=== PATIENT | male | born 1975 | race American Indian/Alaskan Native ===

== ENCOUNTER 2016-12-28 09:33 | Outpatient (CLI) | payer OTHER ==
[2016-12-28] MEDS ORDERED: PROVENTIL IH ONE (09:45)
== END 2016-12-28 09:34 | disposition home or self-care (01) ==
LOC: PF 09:33
PROVIDERS: ATTEND Internal Medicine
DX: I50.9 Heart failure, unspecified (principal); R06.89 Other abnormalities of breathing; M25.80 Other specified joint disorders, unspecified joint; R20.0 Anesthesia of skin
CPT/HCPCS: 94060; 94640; 94729

== ENCOUNTER 2017-01-27 09:46 | Inpatient (IN) | payer MEDICARE, OTHER ==
[2017-01-27 10:49] LABS: Basophils % (Auto) 0.7 % (0.0-1.8); Eosinophils % (Auto) 1.2 % (0.0-4.3); Hemoglobin 11.7 gm/dl (11.8-15.2); Mean Corpuscular HGB Conc 32 % (32-34); Mean Corpuscular Hemoglobin 23 pg (28-32); Mean Corpuscular Volume 74 fl (84-94); Platelet Count 199 K/mm3 (140-440); Red Blood Count 4.99 M/mm3 (3.65-5.03); Red Cell Distribution Width 19.2 % (13.2-15.2); White Blood Count 6.7 K/mm3 (4.5-11.0)
[2017-01-27 10:58] LABS: INR 1.25 (0.87-1.13)
[2017-01-27] MEDS ORDERED: NACL 0.9% 500 ML 500 ML IV SCH (11:00)
[2017-01-27 11:47] LABS: Anion Gap 17 mmol/L; BUN/Creatinine Ratio 14.44; Blood Urea Nitrogen 13 mg/dL (9-20); Calcium 8.1 mg/dL (8.4-10.2); Carbon Dioxide 24 mmol/L (22-30); Chloride 103.9 mmol/L (98-107); Glucose 112 mg/dL (75-100); Potassium 4.3 mmol/L (3.6-5.0); Sodium 141 mmol/L (137-145)
[2017-01-27] MEDS ORDERED: XYLOCAINE 2% INFILTRATI ONE (13:26)
[2017-01-27] MEDS ORDERED: HEPARIN/NS 5000 UNIT/500ML(CATH LAB) 1,000 ML IR ONE (13:26)
[2017-01-27] MEDS ORDERED: SUBLIMAZE ONE (13:27)
[2017-01-27] MEDS ORDERED: VERSED ONE (13:27)
[2017-01-27] MEDS ORDERED: HEPARIN/NS 5000 UNIT/500ML(CATH LAB) 500 ML IR ONE (13:31)
[2017-01-27] MEDS ORDERED: NITROGLYCERIN SYRINGE 0 ML ONE (13:45)
[2017-01-27] MEDS ORDERED: LASIX ONE (14:05)
[2017-01-27] MEDS ORDERED: MORPHINE ONE (14:06)
[2017-01-27] MEDS ORDERED: TYLENOL PO PRN (14:32)
[2017-01-27] MEDS ORDERED: MILK OF MAGNESIA PO PRN (14:32)
[2017-01-27] MEDS ORDERED: DULCOLAX PR PRN (14:32)
[2017-01-27] MEDS ORDERED: ZOFRAN IV PRN (14:32)
[2017-01-27] MEDS ORDERED: AMBIEN PO PRN (14:32)
[2017-01-27] MEDS ORDERED: ALUM-MAG HYDROX-SIMETH 200-200-20MG/5ML PO PRN (14:32)
--- NOTE | 2017-01-27 14:41 | Event Note ---
Date: 01/27/17 Cardiac cath revealed end stage dilated CM, EF 5-10%. There was severe HF with LVEDP 45. Admit for IV diuretics, inotropic therapy.
[2017-01-27] MEDS ORDERED: PRIMACOR 20 MG in D5W 80 ML IV SCH (15:00)
--- NOTE | 2017-01-27 15:01 | XRay Report ---
AP CHEST: HISTORY: CHF No comparison. There is mild cardiomegaly and borderline pulmonary venous congestion. The lungs are clear. The bony thorax is intact. IMPRESSION: Cardiomegaly.
[2017-01-27] MEDS ORDERED: CATAPRES PO PRN (15:43)
[2017-01-27] MEDS: NORCO 10/325 PO PRN (18:07)
[2017-01-27] MEDS: LASIX IV SCH (18:08)
--- NOTE | 2017-01-27 20:41 | Cardiac Catherization Report ---
REASON FOR PROCEDURE: The patient has severe dilated cardiomyopathy and systolic heart failure, presented with worsening shortness of breath and chest pain, abnormal thallium stress test, recommended for right and left heart catheterization. PROCEDURE: The patient was prepped and draped in a sterile fashion after informed consent. Right femoral artery and vein were entered using the Seldinger technique. A 6-Tajik sheath was placed in the artery and then 8 Tajik sheath in the vein. Sheldon-Paolo catheterization advanced into the pulmonary artery position. Cardiac output was measured thermodilution method. Pigtail catheter was then advanced into the left ventricle _cavity____. Right and left heart filling pressures were measured. The Sheldon-Paolo catheter was then withdrawn. The pigtail catheter was used to perform left ventricle angiography. Following this, this catheter was withdrawn across the aortic valve and transaortic pressure gradient was measured. We then exchanged left Cristy catheter, which was used for left angiography Finally, right Cristy catheter was used for right coronary angiography. The catheters were removed, sheath removed, and hemostasis achieved in the arterial position using an Angio-Seal device, and manual compression __in the venous___ position. The patient was returned to the post-procedure unit in stable condition. There were no complications. FINDINGS: HEMODYNAMICS: Mean right atrial pressure was 25. Right ventricular pressure was 65/25. Pulmonary artery pressure was 70/40. The mean pulmonary artery wedge pressure was 30 to 35. Left ventricular end-diastolic pressure was 45. Ascending aortic pressure was 143/104. There was no significant pressure gradient on pullback across the aortic valve. Cardiac output was 4.6 liters per minutes. CORONARY ANGIOGRAPHY: There was dual left anterior descending and circumflex ostia. The left anterior descending artery was notable for a stent in its mid segment. The stented segment of the LAD was widely patent. Otherwise, mild irregularities of the LAD was noted. A small caliber mid diagonal branch, which originated from the mid LAD stented segment contained ostial narrowing consistent with stent retirement. A large first diagonal branch of the LAD also was notable for a patent stent in its mid segment. No significant in-stent restenosis was noted in the diagonal stent. The circumflex artery was dominant. This vessel contained diffuse atherosclerosis in its proximal, mid, and distal segments. The second obtuse marginal branch of the circumflex contained a stent in its proximal to mid segment. This circumflex stent was also widely patent with no significant in-stent restenosis. Right coronary artery was small caliber, nondominant and contained diffuse severe atherosclerosis in its mid segment. The left ventricle was severely dilated. There was severe left ventricular systolic dysfunction, ejection fraction 5-10%. CONCLUSION: 1. Severe elevation of the right and left heart filling pressures, severe pulmonary hypertension. 2. Multivessel coronary artery disease. 3. Patent multivessel stents, mid LAD, first diagonal branch and second obtuse marginal. 4. Severe dilated cardiomyopathy, left ventricular ejection fraction 5-10%. The severity of the cardiomyopathy is disproportionate to the degree of coronary artery disease that is evident. RECOMMENDATION: 1. The patient has decompensated heart failure as evidenced by markedly high left ventricular filling pressures, with a left ventricular end diastolic pressure of 45. 2. We will recommend admission for aggressive heart failure therapy including intravenous diuretics and intravenous inotropic therapy. [facility]# [id number] ELIZABETH/JOLEEN METCALF
[2017-01-27] MEDS ORDERED: NON-FORMULARY (Pravastatin Sodium [Pravastatin] 20 MG) PO SCH (22:00)
[2017-01-27] MEDS: PEPCID PO SCH (22:06)
[2017-01-27] MEDS: LOPRESSOR PO SCH (22:06)
[2017-01-27] MEDS: COLACE PO SCH (22:06)
[2017-01-27] MEDS: ZOCOR PO SCH (22:07)
[2017-01-27] MEDS: PRIMACOR 20 MG in D5W 80 ML IV SCH (23:29)
[2017-01-28] MEDS: LASIX IV SCH ×2 (05:36→18:00)
[2017-01-28] MEDS: NORCO 10/325 PO PRN ×2 (05:36→22:45)
[2017-01-28 06:36] LABS: Basophils % (Auto) 0.6 % (0.0-1.8); Eosinophils % (Auto) 2.1 % (0.0-4.3); Hemoglobin 11.6 gm/dl (11.8-15.2); Mean Corpuscular HGB Conc 32 % (32-34); Mean Corpuscular Volume 73 fl (84-94); Platelet Count 211 K/mm3 (140-440); Red Blood Count 4.91 M/mm3 (3.65-5.03); Red Cell Distribution Width 19.3 % (13.2-15.2); White Blood Count 5.7 K/mm3 (4.5-11.0)
[2017-01-28 06:45] LABS: Mean Corpuscular Hemoglobin 24 pg (28-32)
[2017-01-28 06:48] LABS: Anion Gap 16 mmol/L; Blood Urea Nitrogen 14 mg/dL (9-20); Calcium 8.3 mg/dL (8.4-10.2); Carbon Dioxide 29 mmol/L (22-30); Chloride 100.2 mmol/L (98-107); Glucose 87 mg/dL (75-100); Sodium 141 mmol/L (137-145)
--- NOTE | 2017-01-28 08:31 | Admit Criteria Form ---
Admission Criteria Documentation: CARDIOLOGY GRG Clinical Indications for Admission to Inpatient Care (Orick/check or initial the applicable condition/criteria) Hospital admission is needed for appropriate care of the patient because of ANY ONE of the following: [ ] I. Hemodynamic instability as indicated by ALL of the following (1)(2)(3) (4)(5)(6)(7)(8)(9)(10) [ ]a) Vital sign abnormality not readily corrected by appropriate treatment with 12-24 hours for ANY ONE: [ ]i) Hypotension that persists despite appropriate treatment (eg, volume repletion) [ ]ii) Tachycardiathat persists despite appropriate tx ( e.g., analgesia, fluids, sedation as indicated [ ]iii) Orthostatic vital sign changes that persists despite appropriate treatment (eg, volume repletion) [ ]b) Vital sign abnormailty that is severe indicated by ANY ONE of the following: [ ]i) Inadequate perfusion indicated by ANY ONE of the following: [ ] 1) Lactic acidosis (> 2 mmol/L) [ ] 2) New abnormal capillary refill (> 3 seconds) [ ] 3) Reduced urine output [ ] 4) New altered mental status [ ] 5) Myocardial Ischemia [ ] 6) Other metabolic acidosis (arterial pH <7.35 ) not otherwise explained. [ ]ii) Mean arterial pressure[A] less than 60 mm Hg [ ]iii) Mean arterial pressure[A] less than 70 mm Hg after 30 minutes of appropriate treatment (eg, fluid resuscitation) [ ]iv) Sustained heart rate greater than 120 beats per minute in adult or child 6 years or older[B] [ ]v) IV inotropic or vasopressor medication required to maintain adequate blood pressure or perfusion [ ] II. Severe heart failure as indicated by ANY ONE of the following(17)(18) [ ]a) Respiratory distress [ ]b) Hypotension [ ]c) Debilitating anasarca refractory to therapy (eg, tissue breakdown with infection)[C](19) [ ]d) Cardiac arrhythmias of immediate concern [ ]e) Myocardial ischemia [ ] III. Cardiac arrhythmias or findings of immediate concern indicated by ANY ONE of the following (21)(22): [ ] a) Heart rhythms that are inherently dangerous or unstable indicated by ANY ONE of the following (23)(24)(25): [ ] i) Resuscitated ventricular fibrillation or cardiac arrest [ ] ii) Ventricular escape rhythm [ ] iii) Sustained ventricular tachycardia (30 seconds or more of ventricular rhythm at greater than 100 beats per minute) [ ] iv) Nonsustained ventricular tachycardia and ANY ONE of the following: [ ] 1) Suspected cardiac ischemia as cause or consequence of ventricular tachycardia [ ] 2) Acute myocarditis [ ] b) Unstable cardiac conduction defects indicated by ANY ONE of the following(25)(26)(27) [ ] i) Type II second-degree atrioventricular block [ ]ii) Third-degree atrioventricular block [ ]iii) New-onset left bundle branch block with suspected myocardial ischemia [ ]c) Any heart rhythm and ANY ONE of the following (23)(24)(28)(29) (30) [ ] i) Continuous long-term ECG monitoring needed (e.g., initiation of drug requiring monitoring for more than 24 hours) [ ] ii) Patient has automatic implanted cardioverter defibrillator that is repeatedly firing, malfunctioning, or in need of immediate adjustment of settings beyond the scope of ambulatory or observation care [ ]d) Heart rhythms of concern due to ANY ONE of the following: [ ] i) Hypotension [ ] ii) Respiratory distress [ ] iii) Association with other significant symptoms (e.g., bradycardia with syncope or ongoing dizziness, supraventricular tachycardia with chest pain (28)(29)(31) [ ] IV. Monitoring for cardiac contusion beyond the scope of observation care needed [A](32)(33)(34) [ ] V. Surgical or device complication (e.g., valve replacement complication , ICD disfunction or pacemaker dysfunction) (49)(50)(51)(52)(53)(54) [ ] . Inpatient palliative care needed. [F](51)(52) Also use Inpatient Palliative Care Criteria [ ] VII. Nonbacterial thrombotic (marantic) endocarditis(43)(44)(55)(56)(57) [X ] VIII. Cardiology condition, symptom, or finding for which emergency and observation care has failed or are not considered appropriate. [ ] IX. Acute valvular disease requiring inpatient as indicated by ANY ONE of the following (40)(41) [ ]a) Acute valvular regurgitation (42) [ ]b) Noninfectious valvulitis (43)(44) [ ]c) Obstructive valve thrombosis (45)(46) [ ]d) Paravalvular leak(47)(48) [ ]e) Other significant valvular disorder remaining after emergency or observation level of care (as appropriate) [ ]X. Pericardial disease requiring inpatient treatment as indicated by ANY ONE of the following (35)(36)(37)(38) [ ]a) Suspected tamponade [ ]b) Hemopericardium [ ]c) Other significant pericardial disorder remaining after emergency or observation level of care (as appropriate)(39) [ ] XI. Cardiac ischemia beyond scope of emergency and observation care. [ ] XII. Cyanotic heart disease requiring inpatient care as indicated by 1 or more of the following(58)(59)(60): [ ]a) Acute onset of hypoxemia [ ]b) Exacerbation [ ] XIII. Hypertension requiring inpatient treatment as indicated by ANYONE of the following(11)(12)(13)(14): [ ]a) Severe hypertension (SBP greater than 180 mm Hg or DBP greater than 110 mm Hg, or greater than the 95th percentile for age, gender, and height in pediatric patients) that cannot be controlled (eg, to SBP less than 160 mm Hg and DBP less than 100 mm Hg) by emergency department or observation care treatment(15) [ ]b) Acute end organ damage secondary to hypertension (SBP greater than 140 mm Hg or DBP greater than 90 mm Hg) as indicated by ANYONE of the following: [ ] i) Hypertensive encephalopathy (eg, Altered mental status)(16) [ ] ii) Cerebral infarction [ ] iii) Intracranial hemorrhage [ ] iv) Myocardial ischemia or infarction [ ] v) Heart failure (eg, pulmonary edema) [ ] vi) Aortic dissection [ ] vii) Increased creatinine (new) with reduction of more than 50% in estimated glomerular filtration rate from baseline [ ] viii) Papilledema [ ] ix) Retinal hemorrhage [ ] x) Microangiopathic hemolytic anemia [ ] xi) Seizure [ ] xii) Other significant finding secondary to hypertension [ ] XIV. Complications of transplanted heart indicated by ANY ONE of the following(61): [ ]a) Acute graft rejection requiring inpatient management (eg, intravenous imunosuppression)(62)(63) [ ]b) Acute graft heart failure indicated by ANY ONE of the following(64): [ ] i) Hemodynamic instability [ ] ii) Cardiac arrhythmias of immediate concern [ ] iii) Pulmonary edema that is very severe (eg, mechanical ventilation needed, imminent or likely, need for 100% oxygen to keep oxygen saturation above 90%) [ ] iv) Pulmonary edema that is persistent as indicated by ALL of the following: [ ] 1) New need for oxygen therapy to keep oxygen saturation above 90 % (or increased FiO2 need from baseline) [ ] 2) Has not improved sufficiently with emergency department or observation care IV diuretics or other heart failure treatments[E]. [ ] iv) Altered mental status that is severe or persistent [ ] iv) Increased creatinine (new on laboratory test) with reduction of more than 50% in estimated glomerular filtration rate from baseline [ ] iv) Progressively (ongoing) rising creatinine (known from past laboratory test) with reduction of more than 25% in estimated glomerular filtration rate from baseline [ ] iv) Acute renal failure [ ] iv) Acute peripheral ischemia (eg, examination shows pulseless, cool, mottled, or cyanotic extremity) [ ] iv) Pulmonary artery catheter monitoring needed [ ] iv) Other sign or symptom of heart failure requiring inpatient treatment (ie, too severe or not responsive to outpatient and observation care treatment) [ ]c) Infection requiring inpatient management (eg, Hemodynamic instability, need for intravenous antimicrobial treatment)(66)(67)(68)(69)(70) [ ]d) Cardiac allograft vasculopathy requiring inpatient management (eg evidence of cardiacischemia)(71) [ ]e) Other complication of transplanted heart (eg, stroke, severe pulmonary hypertension, severe valvular dysfunction) requiring inpatient management(72) The original [employer] content created by [employer] has been revised. The portions of the content which have been revised are identified through the use of italic text or in bold, and [facility] has neither reviewed nor approved the modified material. All other unmodified content is copyright [employer] [facility] Please see references footnoted in the original [employer] [facility] edition 2017 Admission Criteria Met: Yes
[2017-01-28] MEDS: LOVENOX SUB-Q SCH (09:39)
[2017-01-28] MEDS: PEPCID PO SCH ×2 (09:40→22:46)
[2017-01-28] MEDS: LOPRESSOR PO SCH ×2 (09:40→22:46)
[2017-01-28] MEDS: HALFPRIN EC PO SCH (09:40)
[2017-01-28] MEDS: COLACE PO SCH ×2 (09:40→22:44)
[2017-01-28] MEDS: PLAVIX PO SCH (09:40)
[2017-01-28] MEDS: ZESTRIL PO SCH (09:41)
[2017-01-28] MEDS ORDERED: KLOR CON 20 MEQ PO SCH (10:00)
[2017-01-28] MEDS ORDERED: LOVENOX SUB-Q SCH (10:00)
[2017-01-28] MEDS ORDERED: NON-FORMULARY (Aspirin Ec 81 MG) PO SCH (10:00)
[2017-01-28] MEDS ORDERED: NON-FORMULARY (Benazepril Hcl [Benazepril Hcl] 40 MG) PO SCH (10:00)
--- NOTE | 2017-01-28 12:14 | Progress Note ---
Assessment and Plan Decompensated systolic heart failure Dilated Cardiomyopathy Hx of CAD [facility] this admission: patent multivessel stents of the mid LAD, first diagonal, and second obtuse marginal. LVEF 5-10%. Plan: Continue aggressive medical therapy for his severe dilated cardiomyopathy. Subjective Date of service: 01/28/17 Interval history: Patient reports he is diuresing well. He denies chest pain and shortness of breath. Objective Vital Signs Temp Pulse Pulse Resp BP BP Pulse Ox 01/28/17 10:20 99 01/28/17 09:46 16 01/28/17 09:41 87 140/86 01/28/17 09:40 87 140/86 01/28/17 09:00 99.2 F 87 16 140/86 100 01/28/17 06:32 78 144/94 01/28/17 06:00 88 20 01/28/17 05:36 20 01/28/17 05:19 97.5 F L 88 20 148/105 100 01/28/17 02:06 88 01/27/17 22:06 98 H 166/114 01/27/17 20:37 88 20 01/27/17 20:26 96 01/27/17 19:27 98 F 85 20 166/114 100 01/27/17 19:25 97.5 F L 98 H 22 166/114 100 01/27/17 18:55 88 18 139/100 01/27/17 18:15 81 20 144/102 01/27/17 17:40 82 18 147/103 01/27/17 17:39 97.3 F L 84 20 147/103 100 01/27/17 16:45 81 17 133/112 100 01/27/17 16:15 82 17 141/105 100 01/27/17 15:45 78 10 L 144/107 100 01/27/17 15:15 78 18 146/108 100 01/27/17 15:00 81 12 134/103 100 01/27/17 14:45 81 16 139/108 100 01/27/17 14:30 98.1 F 83 16 148/106 100 - Physical Examination General: No Apparent Distress HEENT: Positive: PERRL Cardiac: Positive: Reg Rate and Rhythm Extremities: Present: +2 Edema - Labs and Meds CBC 01/28/17 Range/Units 04:31 WBC 5.7 (4.5-11.0) K/mm3 RBC 4.91 (3.65-5.03) M/mm3 Hgb 11.6 L (11.8-15.2) gm/dl Hct 36.0 (35.5-45.6) % Plt Count 211 (140-440) K/mm3 Lymph # 1.1 L (1.2-5.4) K/mm3 [place] # 0.8 (0.0-0.8) K/mm3 Eos # 0.1 (0.0-0.4) K/mm3 Baso # 0.0 (0.0-0.1) K/mm3 Comprehensive Metabolic Panel 01/28/17 Range/Units 04:31 Sodium 141 (137-145) mmol/L Potassium 4.0 (3.6-5.0) mmol/L Chloride 100.2 (98-107) mmol/L Carbon Dioxide 29 (22-30) mmol/L BUN 14 (9-20) mg/dL Creatinine 1.0 (0.8-1.5) mg/dL Glucose 87 (75-100) mg/dL Calcium 8.3 L (8.4-10.2) mg/dL
[2017-01-28] MEDS: PRIMACOR 20 MG in D5W 80 ML IV SCH ×2 (13:29→23:55)
[2017-01-28] MEDS: K-DUR PO SCH (17:59)
[2017-01-28] MEDS: ZOCOR PO SCH (22:46)
[2017-01-29] MEDS: LASIX IV SCH ×2 (06:33→19:07)
[2017-01-29 06:37] LABS: Anion Gap 14 mmol/L; Blood Urea Nitrogen 11 mg/dL (9-20); Calcium 8.1 mg/dL (8.4-10.2); Carbon Dioxide 26 mmol/L (22-30); Chloride 103.2 mmol/L (98-107); Glucose 108 mg/dL (75-100); Potassium 3.5 mmol/L (3.6-5.0); Sodium 140 mmol/L (137-145)
[2017-01-29] MEDS: HALFPRIN EC PO SCH (10:58)
[2017-01-29] MEDS: PLAVIX PO SCH (11:03)
[2017-01-29] MEDS: COLACE PO SCH ×2 (11:04→21:47)
[2017-01-29] MEDS: LOPRESSOR PO SCH ×2 (11:04→21:45)
[2017-01-29] MEDS: ZESTRIL PO SCH (11:04)
[2017-01-29] MEDS: PRIMACOR 20 MG in D5W 80 ML IV SCH ×2 (11:05→21:45)
[2017-01-29] MEDS: LOVENOX SUB-Q SCH (11:05)
[2017-01-29] MEDS: K-DUR PO SCH (11:05)
[2017-01-29] MEDS: PEPCID PO SCH ×2 (11:05→21:44)
[2017-01-29] MEDS: NORCO 10/325 PO PRN (11:55)
--- NOTE | 2017-01-29 13:40 | Progress Note ---
Assessment and Plan - Patient Problems (1) Acute on chronic systolic heart failure Current Visit: Yes Status: Acute Plan to address problem: Continue intravenous diuretics and milrinone for heart failure management. Subjective Date of service: 01/29/17 Interval history: Patient is comfortable, no new cardiac complaints. Tolerating intravenous milrinone therapy. Objective Vital Signs Temp Pulse Resp BP Pulse Ox 01/29/17 11:55 22 01/29/17 11:04 86 133/66 01/29/17 10:00 80 98 01/29/17 08:50 97.9 F 80 18 115/66 100 01/29/17 06:00 80 01/29/17 03:59 97.9 F 83 18 144/96 100 01/29/17 00:18 98.1 F 89 18 144/87 99 01/28/17 21:09 97 01/28/17 19:50 98.4 F 80 18 128/84 100 01/28/17 16:50 99.0 F 86 18 149/92 98 01/28/17 14:00 86 - Physical Examination General: No Apparent Distress HEENT: Positive: PERRL Neck: Positive: neck supple Cardiac: Positive: Reg Rate and Rhythm Lungs: Positive: Decreased Breath Sounds Neuro: Positive: Grossly Intact Abdomen: Positive: Soft Skin: Positive: Clear Extremities: Present: +1 Edema - Labs and Meds Comprehensive Metabolic Panel 01/29/17 Range/Units 05:10 Sodium 140 (137-145) mmol/L Potassium 3.5 L (3.6-5.0) mmol/L Chloride 103.2 (98-107) mmol/L Carbon Dioxide 26 (22-30) mmol/L BUN 11 (9-20) mg/dL Creatinine 1.0 (0.8-1.5) mg/dL Glucose 108 H (75-100) mg/dL Calcium 8.1 L (8.4-10.2) mg/dL
[2017-01-29] MEDS: ZOCOR PO SCH (21:45)
[2017-01-30 06:37] LABS: Anion Gap 16 mmol/L; BUN/Creatinine Ratio 16.25; Blood Urea Nitrogen 13 mg/dL (9-20); Calcium 8.5 mg/dL (8.4-10.2); Carbon Dioxide 26 mmol/L (22-30); Glucose 96 mg/dL (75-100); Sodium 137 mmol/L (137-145)
[2017-01-30] MEDS: LASIX IV SCH (12:21)
[2017-01-30] MEDS: PLAVIX PO SCH (12:21)
[2017-01-30] MEDS: HALFPRIN EC PO SCH (12:21)
[2017-01-30] MEDS: K-DUR PO SCH (12:22)
[2017-01-30] MEDS: LOPRESSOR PO SCH ×2 (12:22→22:46)
[2017-01-30] MEDS: ZESTRIL PO SCH (12:23)
[2017-01-30] MEDS: PEPCID PO SCH ×2 (12:23→22:49)
[2017-01-30] MEDS: LOVENOX SUB-Q SCH (12:23)
[2017-01-30] MEDS: COLACE PO SCH ×2 (12:24→22:49)
--- NOTE | 2017-01-30 15:18 | Progress Note ---
Assessment and Plan - Patient Problems (1) Acute on chronic systolic heart failure Current Visit: Yes Status: Acute Plan to address problem: Continue intravenous diuretics and milrinone for heart failure management. The patient's cardiomyopathy has persisted for over 2 years, and during that time he has been noncompliant with medical therapy for long periods. In anticipation of further intervention will need for ICD therapy, we will recommend consideration of LifeVest prior to discharge. Subjective Date of service: 01/30/17 Interval history: Patient is comfortable, no new cardiac complaints. Tolerating intravenous milrinone therapy. Objective Vital Signs Temp Pulse Resp BP Pulse Ox 01/30/17 12:23 77 01/30/17 12:22 77 01/30/17 09:10 98.3 F 79 18 122/83 100 01/30/17 06:00 80 01/30/17 04:00 97.7 F 82 20 126/84 99 01/30/17 00:00 98.4 F 81 20 133/88 99 01/29/17 22:00 96 01/29/17 20:00 98.0 F 84 20 129/74 98 01/29/17 17:36 98.3 F 78 18 127/87 100 - Physical Examination General: No Apparent Distress HEENT: Positive: PERRL Neck: Positive: neck supple Cardiac: Positive: Reg Rate and Rhythm Lungs: Positive: Decreased Breath Sounds Neuro: Positive: Grossly Intact Abdomen: Positive: Soft Skin: Positive: Clear Extremities: Present: +1 Edema - Labs and Meds Comprehensive Metabolic Panel 01/30/17 Range/Units 05:35 Sodium 137 (137-145) mmol/L Potassium 4.0 (3.6-5.0) mmol/L Chloride 99.0 (98-107) mmol/L Carbon Dioxide 26 (22-30) mmol/L BUN 13 (9-20) mg/dL Creatinine 0.8 (0.8-1.5) mg/dL Glucose 96 (75-100) mg/dL Calcium 8.5 (8.4-10.2) mg/dL
[2017-01-30] MEDS: ZOCOR PO SCH (22:45)
[2017-01-31] MEDS: NORCO 10/325 PO PRN ×2 (06:31→22:53)
[2017-01-31] MEDS: LASIX IV SCH ×2 (06:31→06:32)
[2017-01-31 08:12] LABS: Anion Gap 16 mmol/L; Blood Urea Nitrogen 15 mg/dL (9-20); Calcium 8.7 mg/dL (8.4-10.2); Carbon Dioxide 32 mmol/L (22-30); Chloride 94.2 mmol/L (98-107); Glucose 84 mg/dL (75-100); Sodium 138 mmol/L (137-145)
[2017-01-31] MEDS: LOPRESSOR PO SCH ×2 (11:13→22:42)
[2017-01-31] MEDS: HALFPRIN EC PO SCH (11:13)
[2017-01-31] MEDS: LOVENOX SUB-Q SCH (11:13)
[2017-01-31] MEDS: PLAVIX PO SCH (11:13)
[2017-01-31] MEDS: ZESTRIL PO SCH (11:14)
[2017-01-31] MEDS: PEPCID PO SCH ×2 (11:14→22:42)
[2017-01-31] MEDS: K-DUR PO SCH (11:15)
--- NOTE | 2017-01-31 12:55 | Progress Note ---
Assessment and Plan - Patient Problems (1) Acute on chronic systolic heart failure Current Visit: Yes Status: Acute Plan to address problem: Continue intravenous diuretics and milrinone for heart failure management. The patient's cardiomyopathy has persisted for over 2 years, and during that time he has been noncompliant with medical therapy for long periods. In anticipation of future indication for ICD therapy, we will recommend LifeVest prior to discharge. Subjective Date of service: 02/01/17 Interval history: Patient is comfortable, no new cardiac complaints. Tolerating intravenous milrinone therapy. Objective Vital Signs Temp Pulse Resp BP Pulse Ox 01/31/17 11:14 118/81 01/31/17 11:13 118/81 01/31/17 08:00 98.7 F 88 20 118/81 100 01/31/17 06:00 80 01/31/17 04:00 98.3 F 80 20 119/85 100 01/31/17 00:00 98.4 F 85 18 119/73 96 01/30/17 22:46 80 124/80 01/30/17 22:00 78 01/30/17 20:00 97.9 F 80 20 124/80 99 01/30/17 18:18 98.4 F 77 18 114/67 100 01/30/17 14:00 91 H - Physical Examination General: No Apparent Distress HEENT: Positive: PERRL Neck: Positive: neck supple Cardiac: Positive: Reg Rate and Rhythm Lungs: Positive: Decreased Breath Sounds Neuro: Positive: Grossly Intact Abdomen: Positive: Soft Skin: Positive: Clear Extremities: Present: +1 Edema - Labs and Meds Comprehensive Metabolic Panel 01/31/17 Range/Units 06:59 Sodium 138 (137-145) mmol/L Potassium 4.0 (3.6-5.0) mmol/L Chloride 94.2 L (98-107) mmol/L Carbon Dioxide 32 H (22-30) mmol/L BUN 15 (9-20) mg/dL Creatinine 1.0 (0.8-1.5) mg/dL Glucose 84 (75-100) mg/dL Calcium 8.7 (8.4-10.2) mg/dL
[2017-01-31] MEDS: PRIMACOR 20 MG in D5W 80 ML IV SCH (14:01)
[2017-01-31] MEDS: COLACE PO SCH ×2 (14:13→22:42)
[2017-01-31] MEDS: ZOCOR PO SCH (22:43)
[2017-02-01] MEDS: PRIMACOR 20 MG in D5W 80 ML IV SCH (00:12)
[2017-02-01] MEDS: LASIX IV SCH ×3 (06:54→17:29)
[2017-02-01 07:14] LABS: Anion Gap 15 mmol/L; Blood Urea Nitrogen 16 mg/dL (9-20); Calcium 8.5 mg/dL (8.4-10.2); Carbon Dioxide 27 mmol/L (22-30); Chloride 100.4 mmol/L (98-107); Glucose 99 mg/dL (75-100); Potassium 4.2 mmol/L (3.6-5.0); Sodium 138 mmol/L (137-145)
--- NOTE | 2017-02-01 08:57 | Consultation ---
History of Present Illness - Reason for Consult Consult date: 02/01/17 - History of Present Illness Patient seen and examined chart reviewed. Please 1-year-old male patient of ours from the clinic admitted to the cardiology service by Dr. Plummer following was shortness of breath and acute congestive heart failure ,patient currently on diuresis cardiac catheterization showing significant cardiomyopathy with ejection fraction of 10-15%. Patient feels better less short of breath and patient awaiting installation of LifeVest and subsequent AICD placement, denied any chest pain no fever or chills. Past History Past Medical History: arrhythmia (cardiomyopathy, chronic pain syndrome), hypertension Social history: , smoking Family history: CAD, hypertension, stroke Medications and Allergies Allergies Allergy/AdvReac Type Severity Reaction Status Date / Time No Known Allergies Allergy Verified 01/27/17 10:19 Home Medications Medication Instructions Recorded Confirmed Last Taken Type Aspirin EC 81 mg PO QDAY 01/27/17 01/27/17 01/27/17 03:00 History Benazepril HCl 40 mg PO QDAY 01/27/17 01/27/17 01/27/17 03:00 History Clopidogrel [Plavix] 75 mg PO QDAY 01/27/17 01/27/17 01/27/17 03:00 History Furosemide [Lasix TAB] 40 mg PO QDAY 01/27/17 01/27/17 01/27/17 03:00 History Klor-Con 20 meq PO QDAY 01/27/17 01/27/17 01/27/17 03:00 History Metoprolol [Lopressor TAB] 25 mg PO BID 01/27/17 01/27/17 01/27/17 03:00 History Pravastatin Sodium [Pravastatin] 20 mg PO QHS 01/27/17 01/27/17 01/27/17 03:00 History Active Meds: Active Medications Acetaminophen (Tylenol) 650 mg PO Q4H PRN PRN Reason: Pain MILD(1-3)/Fever >100.5/VILLAR Acetaminophen/Hydrocodone Bitart ([place] 10/325) 1 each PO Q6H PRN PRN Reason: Pain, Moderate (4-6) Last Admin: 01/31/17 22:53 Dose: 1 each Al Hydrox/Mg Hydrox/Simethicone (Alum-Mag Hydrox-Simeth [id number]/5ml) 30 ml PO Q4H PRN PRN Reason: Indigestion Aspirin (Halfprin Ec) 81 mg PO QDAY [facility] Last Admin: 01/31/17 11:13 Dose: 81 mg Bisacodyl (Dulcolax) 10 mg DE QDAY PRN PRN Reason: Constipation unrelieved by MOM Clonidine HCl (Catapres) 0.1 mg PO Q4H PRN PRN Reason: Systolic BP greater than 150 Clopidogrel Bisulfate (Plavix) 75 mg PO QDAY [facility] Last Admin: 01/31/17 11:13 Dose: 75 mg Docusate Sodium (Colace) 100 mg PO BID [facility] Last Admin: 01/31/17 22:42 Dose: 100 mg Enoxaparin Sodium (Lovenox) 40 mg SUB-Q QDAY@1000 [facility] Last Admin: 01/31/17 11:13 Dose: 40 mg Famotidine (Pepcid) 20 mg PO BID [facility] Last Admin: 01/31/17 22:42 Dose: 20 mg Furosemide (Lasix) 40 mg IV 0600,1800 [facility] Last Admin: 02/01/17 06:54 Dose: 40 mg Milrinone Lactate 20 mg/ (Dextrose) 100 mls @ 9.23 mls/hr IV TITR [facility] PRN Reason: 0.375 MCG/KG/MIN Last Admin: 02/01/17 00:12 Dose: 0.375 mcg/kg/min, 9.23 mls/hr Lisinopril (Zestril) 40 mg PO QDAY [facility] Last Admin: 01/31/17 11:14 Dose: 40 mg Magnesium Hydroxide (Milk Of Magnesia) 30 ml PO Q4H PRN PRN Reason: Constipation Metoprolol Tartrate (Lopressor) 25 mg PO BID [facility] Last Admin: 01/31/17 22:42 Dose: 25 mg Ondansetron HCl (Zofran) 4 mg IV Q8H PRN PRN Reason: N/V unrelieved by Reglan Potassium Chloride (K-Dur) 20 meq PO QDAY [facility] Last Admin: 01/31/17 11:15 Dose: 20 meq Simvastatin (Zocor) 10 mg PO QHS [facility] Last Admin: 01/31/17 22:43 Dose: 10 mg Zolpidem Tartrate (Ambien) 5 mg PO QHS PRN PRN Reason: Insomnia Review of Systems Constitutional: weight gain, fatigue, weakness Cardiovascular: orthopnea, palpitations, rapid/irregular heart beat, lightheadedness, shortness of breath, high blood pressure, leg edema, decreased exercise tolerance Respiratory: dyspnea on exertion Musculoskeletal: low back pain Endocrine: weight change Exam - Physical Exam Narrative exam: GENERAL: Patient is not in acute distress not pale or jaundiced no cyanosis HEENT: Mucous membranes moist pharynx is clear with no exudate NECK: Elevated JVD no thyromegaly, no lymphadenopathy CHEST/LUNGS: Reduced air exchange bibasally no crackles no rales no wheeze [No chest wall tenderness, percussion is normal, symmetrical chest wall.] HEART/CARDIOVASCULAR: Tachycardia S1-S2, S3 ABDOMEN: [Abdomen is soft, nondistended, no guarding, no rebound tenderness, no masses palpable per abdomen, active bowel sounds.] SKIN: [Warm and dry, no rash.] NEURO: [Awake, alert, oriented x3, speech normal. Power 5/5 in all the extremities.] EXTREMITIES: Trace pedal edema bilaterally, weak peripheral pulses bilaterally no finger or toe clubbing. - Constitutional Vitals: Temp Pulse Resp BP Pulse Ox 98.3 F 80 18 105/63 100 02/01/17 07:41 02/01/17 07:41 02/01/17 07:41 02/01/17 07:41 02/01/17 07:41 Results - Labs CBC & Chem 7: 01/28/17 04:31 02/01/17 06:22 Assessment and Plan - Patient Problems (1) Essential (primary) hypertension Current Visit: Yes Status: Acute Plan to address problem: Continue diuresis as per cardiology continue to monitor electrolytes. (2) Cardiomyopathy due to hypertension, with heart failure Current Visit: Yes Status: Acute Plan to address problem: Patient evaluated by cardiology EF noted between 10-15%. Patient now being treated with LifeVest and subsequent installation of AICD (3) Acute on chronic systolic heart failure Current Visit: Yes Status: Acute Plan to address problem: Continue current management per cardiology. Blood pressure noted fairly stable
[2017-02-01] MEDS: PLAVIX PO SCH (10:49)
[2017-02-01] MEDS: PEPCID PO SCH (10:49)
[2017-02-01] MEDS: LOPRESSOR PO SCH (10:49)
[2017-02-01] MEDS: COLACE PO SCH (10:49)
[2017-02-01] MEDS: HALFPRIN EC PO SCH (10:49)
[2017-02-01] MEDS: LOVENOX SUB-Q SCH (10:49)
[2017-02-01] MEDS: K-DUR PO SCH (10:49)
[2017-02-01] MEDS: ZESTRIL PO SCH (10:49)
--- NOTE | 2017-02-01 17:09 | Discharge Summary ---
Providers - Providers Date of Admission: 01/27/17 14:32 Date of discharge: 02/01/17 Attending physician: AMERICO RUDD 01/27/17 14:34 Consult to Dietitian/Nutrition [CONS] Routine Physician Instructions: Reason For Exam: Reason for Consult: Nutrition counscelling Primary care physician: TOSHIA BECKETT Hospitalization Condition: Good Hospital course: This is a 41yr old male who presented for an outpatient cardiac cath for an abnormal thallium stress test. A cardiac catheterization showed severe elevation of the right and left heart filling pressure and severe pulmonary hypertension. Patent multivessel stents of the mid LAD, first diagonal branch and second obtuse marginal. Severe left ventricular systolic dysfunction, ejection fraction 5-10%. Patient was admitted to this hospital for aggressive heart failure therapy including intravenous diuretics and inotropic therapy. After several days of inotropic therapy patient is now ready for discharge home. He reports his breathing is better. He denies chest pain. Lifevest has been placed as bridge therapy to eventual ICD. On discharge will add metolazone 2.5mg daily in addition to beta blockers, diuretics, afterload reduction therapy for his chronic systolic heart failure. Patient advised compliance with medications fluid/sodium restriction on discharge. Patient will follow up with [facility] as scheduled Feb.09. Disposition: - TO HOME OR SELFCARE Core Measure Documentation - Palliative Care Palliative Care/ Comfort Measures: Not Applicable - Core Measures Any of the following diagnoses?: heart failure - Heart Failure Discharge Requirements ASHISH/ARB for LVSD if EF <40%: Yes Beta brit at discharge: Yes Exam - Constitutional Vitals: Temp Pulse Resp BP Pulse Ox 98.1 F 73 18 104/56 100 02/01/17 11:37 02/01/17 11:37 02/01/17 11:37 02/01/17 11:37 02/01/17 11:37 General appearance: Present: no acute distress - EENT Eyes: Present: PERRL ENT: hearing intact - Neck Neck: Present: normal ROM - Respiratory Respiratory effort: normal - Cardiovascular Rhythm: regular Heart Sounds: Present: S1 & S2 - Psychiatric Psychiatric: appropriate mood/affect Plan Diet: low fat, low cholesterol, low salt Additional Instructions: F/U with Dr Rudd Feb.09 at 210p. Follow up with: TOSHIA BECKETT MD [Primary Care Provider] - 7 Days OCTAVIA RUDD MD [Staff Physician] - 7 Days Prescriptions: Metolazone [Zaroxolyn] 2.5 mg PO QDAY #30 tablet
[2017-02-01 18:12] VITALS: BP 112/67
== END 2017-02-01 18:29 | disposition home or self-care (01) | DRG 287 ==
LOC: CATHLABREC 09:46 → 4A 14:32
PROVIDERS: ADMIT Internal Medicine Cardiovascular Disease; ATTEND Internal Medicine Cardiovascular Disease
PROC: 4A023N8 Measurement of Cardiac Sampling and Pressure, Bilateral, Percutaneous Approach (ICD-10-PCS; principal; 2017-01-31)
PROC: B216YZZ Fluoroscopy of Right and Left Heart using Other Contrast (ICD-10-PCS; 2017-01-31)
PROC: B2111ZZ Fluoroscopy of Multiple Coronary Arteries using Low Osmolar Contrast (ICD-10-PCS; 2017-01-31)
DX: I11.0 Hypertensive heart disease with heart failure (principal); I27.2 Other secondary pulmonary hypertension; I50.23 Acute on chronic systolic (congestive) heart failure; I42.0 Dilated cardiomyopathy; I25.10 Atherosclerotic heart disease of native coronary artery without angina pectoris; Z82.49 Family history of ischemic heart disease and other diseases of the circulatory system; Z82.3 Family history of stroke
CPT/HCPCS: 36415; 71010; 80048; 85025; 85610; 85730; 93005; 93010; 93460; 94760; 96365; C1760; C1894; J1644; J1650; J1940; J2250; J2260; J2270; J3010; J7040; Q9967

== ENCOUNTER 2017-08-12 03:05 | Emergency (ER) | payer MEDICAID, MEDICARE ==
[~2017-08-12 03:05] MED LIST: ADRENALIN ONE; SODIUM BICARBONATE IV ONE
[2017-08-12] MEDS ORDERED: LASIX ONE (03:12)
[2017-08-12] MEDS ORDERED: ADRENALIN ONE (03:12)
[2017-08-12] MEDS ORDERED: SODIUM BICARBONATE IV ONE (03:12)
--- NOTE | 2017-08-12 03:22 | Emergency Department Report ---
ED CPR HPI - General Stated Complaint: CARDIAC ARREST Time Seen by Provider: 08/12/17 03:18 Source: family, EMS Mode of arrival: Stretcher Limitations: Other - History of Present Illness Initial Comments: 41-year-old -[place] male presents to the emergency department via EMS from home in cardiac arrest. Patient just finished working out and told his that he was having chest pain. He went up to make some coffee allegedly and was found unresponsive shortly afterwards. This happened around 2:15 AM. EMS found the patient pulseless in V. fib. He received ACLS protocol including being intubated, chest compressions. He received 2 doses of amiodarone, 7 defibrillations, 3 doses of epinephrine and one of sodium bicarbonate without any return of spontaneous circulation. He presents to the emergency department , around 3:00 AM, still pulseless and in cardiac arrest. The patient has a history of 2 previous [place], CHF and some type of cardiomyopathy. Apparently the patient was on a three-month trial of a life vest to see if he would need AICD pacemaker placement but allegedly he has not been using it secondary to the cost. - Related Data Home Medications Medication Instructions Recorded Confirmed Last Taken Aspirin EC 81 mg PO QDAY 01/27/17 01/27/17 01/27/17 03:00 Benazepril HCl 40 mg PO QDAY 01/27/17 01/27/17 01/27/17 03:00 Clopidogrel [Plavix] 75 mg PO QDAY 01/27/17 01/27/17 01/27/17 03:00 Furosemide [Lasix TAB] 40 mg PO QDAY 01/27/17 01/27/17 01/27/17 03:00 Klor-Con 20 meq PO QDAY 01/27/17 01/27/17 01/27/17 03:00 Metoprolol [Lopressor TAB] 25 mg PO BID 01/27/17 01/27/17 01/27/17 03:00 Pravastatin Sodium [Pravastatin] 20 mg PO QHS 01/27/17 01/27/17 01/27/17 03:00 Previous Rx's Medication Instructions Recorded Last Taken Type Metolazone [Zaroxolyn] 2.5 mg PO QDAY #30 tablet 02/01/17 Unknown Rx Allergies Allergy/AdvReac Type Severity Reaction Status Date / Time No Known Allergies Allergy Verified 01/27/17 10:19 ED Review of Systems ROS: Stated complaint: CARDIAC ARREST Other details as noted in HPI Comment: Unobtainable due to pts medical conditions ED Past Medical Hx - Past Medical History Hx Hypertension: Yes Hx Heart Attack/AMI: Yes (2000, 2014) Hx Congestive Heart Failure: Yes Hx Asthma: No Hx COPD: Yes (home O2) - Surgical History Hx Coronary Stent: Yes (x3) - Social History Smoking Status: Current Every Day Smoker - Medications Home Medications: Home Medications Medication Instructions Recorded Confirmed Last Taken Type Aspirin EC 81 mg PO QDAY 01/27/17 01/27/17 01/27/17 03:00 History Benazepril HCl 40 mg PO QDAY 01/27/17 01/27/17 01/27/17 03:00 History Clopidogrel [Plavix] 75 mg PO QDAY 01/27/17 01/27/17 01/27/17 03:00 History Furosemide [Lasix TAB] 40 mg PO QDAY 01/27/17 01/27/17 01/27/17 03:00 History Klor-Con 20 meq PO QDAY 01/27/17 01/27/17 01/27/17 03:00 History Metoprolol [Lopressor TAB] 25 mg PO BID 01/27/17 01/27/17 01/27/17 03:00 History Pravastatin Sodium [Pravastatin] 20 mg PO QHS 01/27/17 01/27/17 01/27/17 03:00 History Metolazone [Zaroxolyn] 2.5 mg PO QDAY #30 tablet 02/01/17 Unknown Rx ED Physical Exam - General Limitations: Other - Other Other exam information: GENERAL: Patient is ill-appearing and unresponsive. HENT: Normocephalic. Atraumatic. Patient has moist mucous membranes. ET tube in place. EYES: Pupils are fixed and dilated. NECK: Supple. Trachea appears midline. CHEST/LUNGS: There are no spontaneous respirations. HEART/CARDIOVASCULAR: There are no spontaneous heart sounds. ABDOMEN: Abdomen is soft. There is no abdominal distention. SKIN: Skin is cool but dry. NEURO: Unresponsive. Does not withdraw to painful stimuli. Does not follow any commands. MUSCULOSKELETAL: There is no obvious deformity. There is no evidence of acute injury. No palpable femoral or radial pulses. ED Medical Decision Making - Medical Decision Making The patient presented to the emergency department in cardiac arrest, intubated, receiving chest compressions and ACLS protocol. He already received 7 defibrillation, amiodarone, epinephrine, sodium bicarbonate and apparently had been in V. fib the entire time. As soon as the patient presented to the emergency department, we continued chest compressions, placed him on the monitor and continued ACLS protocol under my supervision. The patient was still pulseless and appeared to be in PEA. He was given another dose of epinephrine, had another pulse and rhythm check and was found to be pulseless and PEA. He was then given another dose of epinephrine and a second dose of sodium bicarbonate. After another round of ACLS protocol and chest compressions , the patient was still pulseless in PEA. If the timing is correct regarding the patient's arrest starting around 2:15 AM, the patient had been pulseless for almost one hour without any return of spontaneous circulation. At this point I took the bedside ultrasound and looked at his heart and there was no movement, squeeze or even fibrillation. At this point time of was called at 3:12 AM. Family was then notified and has been given a chance to come back and see him in the emergency department. - Differential Diagnosis dysrhythmia, [place], PE Critical Care Time: Yes Critical care time in (mins) excluding proc time.: 10 Critical care attestation.: If time is entered above; I have spent that time in minutes in the direct care of this critically ill patient, excluding procedure time. Critical care time was spent on this patient doing his initial evaluation, supervision of ACLS protocol and discussion with the family. Critical Care Time: 10 minutes ED Disposition Clinical Impression: Cardiac arrest Disposition: DC-20 Is pt being admited?: No Time of Disposition: 04:27
== END 2017-08-12 07:21 ==
LOC: ED 03:05
DX: I46.9 Cardiac arrest, cause unspecified (principal); I11.0 Hypertensive heart disease with heart failure; I50.9 Heart failure, unspecified; I25.2 Old myocardial infarction; J44.9 Chronic obstructive pulmonary disease, unspecified; F17.200 Nicotine dependence, unspecified, uncomplicated; Z95.818 Presence of other cardiac implants and grafts
CPT/HCPCS: 99285; J0171; J1940